=== PATIENT | female | born 1975 | race Caucasian/White ===

== ENCOUNTER 2021-11-02 | Inpatient (IN) | payer MEDICAID ==
[~2021-11-02] VITALS: Ht 154.9 cm; Wt 75.0 kg
[2021-11-02] MEDS ORDERED: METOPROLOL SUCCINATE 50MG ER TABLET PO STA (00:48)
[2021-11-02] MEDS ORDERED: IBUPROFEN 600MG TABLET PO ONE (01:00)
[2021-11-02] MEDS ORDERED: CLONIDINE 0.2MG TABLET PO ONE (01:00)
[2021-11-02] MEDS ORDERED: LABETALOL HCL VIAL 20 MG/4 ML VIAL IV ONE (02:30)
[2021-11-02] MEDS: LABETALOL 5MG/ML SYR 20 MG/4 ML SYRINGE IV NR ×2 (02:30→02:58)
[2021-11-02] MEDS ORDERED: ONDANSETRON HCL 4MG/2ML INJ IV PRN (03:30)
[2021-11-02] MEDS ORDERED: DIPHENHYDRAMINE 50MG/ML VIAL IV PRN (03:30)
[2021-11-02] MEDS ORDERED: ZOLPIDEM TARTRATE 5MG TABLET PO PRN (03:30)
[2021-11-02] MEDS ORDERED: HYDRALAZINE 20MG/ML VIAL IV PRN (03:30)
[2021-11-02] MEDS ORDERED: CLONIDINE 0.1MG TABLET PO PRN (03:30)
[2021-11-02] MEDS ORDERED: ACETAMINOPHEN 325MG TABLET PO PRN ×2 (03:30)
[2021-11-02] MEDS ORDERED: DEXTROSE 50% WATER 50ML SYRINGE IV PRN (03:30)
[2021-11-02 03:32] LABS: CHLORIDE 102 mEq/L (98-107); HEMATOCRIT 40.5 % (36.0-48.0); HEMOGLOBIN 13.4 g/dL (12.0-16.0); MEAN CORPUSCULAR HEMOGLOBIN 27.3 pg (28.0-32.0); MEAN CORPUSCULAR VOLUME 82.2 fL (81.0-99.0); PLATELET 208 x1000/uL (130-400); RED BLOOD CELL COUNT 4.92 mill/uL (4.2-5.4); RED CELL DISTRIBUTION WIDTH 13.8 % (11.6-14.6)
[2021-11-02 05:41] LABS: CHLORIDE 110 mEq/L (98-107)
[2021-11-02] MEDS: HYDRALAZINE HCL 100MG TABLET PO SCH ×3 (06:00→22:00)
[2021-11-02] MEDS ORDERED: SODIUM CHLORIDE 0.9% 1,000 ML IV ONE (06:30)
[2021-11-02] MEDS: SODIUM CHLORIDE 0.9% INJ 3ML FLUSH IVF SCH ×3 (06:47→20:32)
[2021-11-02] MEDS: INSULIN LISPRO 100 UNITS/ML SUBCUT SCH ×4 (08:20→20:48)
[2021-11-02] MEDS: BLOOD SUGAR DIAGNOSTIC STRIP TEST SCH ×4 (09:29→20:42)
[2021-11-02] MEDS: AMLODIPINE 5MG TABLET PO SCH ×2 (09:42→20:31)
[2021-11-02] MEDS: LABETALOL HCL 300MG TABLET PO SCH ×2 (09:43→20:32)
[2021-11-02 23:05] VITALS: BP 114/60
== END 2021-11-02 23:05 | disposition home or self-care (01) | DRG 199 ==
LOC: ER → MICUSO 02:30
PROVIDERS: ADMIT Internal Medicine; ATTEND Internal Medicine
DX: I16.0 Hypertensive urgency (principal); E11.9 Type 2 diabetes mellitus without complications; I10 Essential (primary) hypertension; Z20.822 Contact with and (suspected) exposure to COVID-19
CPT/HCPCS: 36415; 80053; 82962; 83036; 84484; 85027; 87426; 99285; J1815; J3490

== ENCOUNTER 2022-07-12 20:21 | Emergency (ER) | payer MEDICAID ==
[~2022-07-12] VITALS: Ht 162.6 cm; Wt 73.0 kg
[2022-07-12] MEDS ORDERED: CYCLOBENZAPRINE 10MG TABLET PO ONE (22:45)
[2022-07-12] MEDS ORDERED: KETOROLAC 30MG/ML VIAL IM ONE (22:45)
[2022-07-12] MEDS ORDERED: CYCL10TA21 MT (22:55)
[2022-07-12] MEDS ORDERED: NAPR-1176 MT (22:55)
[2022-07-12 23:07] VITALS: BP 123/89
== END 2022-07-12 23:08 | disposition home or self-care (01) ==
LOC: ER 20:21
DX: S30.0XXA Contusion of lower back and pelvis, initial encounter (principal); S10.83XA Contusion of other specified part of neck, initial encounter; W18.39XA Other fall on same level, initial encounter; Y93.89 Activity, other specified; Y92.89 Other specified places as the place of occurrence of the external cause; Y99.8 Other external cause status; E11.9 Type 2 diabetes mellitus without complications; I10 Essential (primary) hypertension
CPT/HCPCS: 81025; 96372; 99283; J1885

== ENCOUNTER 2022-08-24 22:26 | Inpatient (IN) | payer MEDICAID ==
[~2022-08-24] VITALS: Ht 160 cm; Wt 69.6 kg
[~2022-08-24 22:26] MED LIST: CYCL10TA21 MT; NAPR-1176 MT
[2022-08-25 03:57] LABS: CHLORIDE 103 mEq/L (98-107)
[2022-08-25 04:04] LABS: BASOPHILS % 0.1 % (0.0-2.0); EOSINOPHILS % 1.1 % (0.0-5.0); HEMATOCRIT. 42.5 % (36.0-48.0); HEMOGLOBIN. 13.8 g/dL (12.0-16.0); LYMPHOCYTES % 30.3 % (20.0-50.0); MEAN CORPUSCULAR HEMOGLOBIN 27.1 pg (28.0-32.0); MEAN CORPUSCULAR VOLUME 83.4 fL (81.0-99.0); MEAN PLATELET VOLUME 8.4 fl (7.4-10.4); MONOCYTES % 6.6 % (2.0-8.0); NEUTROPHILS % 61.9 % (40.0-76.0); PLATELET 277 x1000/uL (130-400); RED BLOOD CELL COUNT 5.09 mill/uL (4.2-5.4); RED CELL DISTRIBUTION WIDTH 13.6 % (11.6-14.6)
[2022-08-25 04:15] LABS: *AMPHETAMINES SCREEN URINE NEGATIVE (NEGATIVE); *BARBITURATES SCREEN URINE NEGATIVE (NEGATIVE); *BENZODIAZEPINES SCREEN URINE NEGATIVE (NEGATIVE); *COCAINE SCREEN URINE NEGATIVE (NEGATIVE); CANNABINOID URINE SCREEN NEGATIVE (NEGATIVE); METHADONE URINE SCREEN NEGATIVE (NEGATIVE); OPIATES URINE SCREEN NEGATIVE (NEGATIVE); PHENCYCLIDINE URINE SCREEN NEGATIVE (NEGATIVE)
[2022-08-25 16:00] VITALS: BP 166/89
[2022-08-25 16:29] VITALS: BP 166/87
[2022-08-25] MEDS: AMLODIPINE 5MG TABLET PO SCH (16:51)
[2022-08-25 20:00] VITALS: BP 149/89
[2022-08-25] MEDS ORDERED: IBUPROFEN 600MG TABLET PO NR (21:15)
[2022-08-26] VITALS: BP 166/81
[2022-08-26 04:00] VITALS: BP 141/78
[2022-08-26 08:00] VITALS: BP 139/80
[2022-08-26] MEDS ORDERED: CLONIDINE 0.1MG TABLET PO PRN (08:15)
[2022-08-26] MEDS ORDERED: ACETAMINOPHEN 325MG TABLET PO PRN (08:15)
[2022-08-26] MEDS ORDERED: HYDROCODONE/ACETAMINOPHEN 5/325MG TABLET PO PRN (08:15)
[2022-08-26] MEDS ORDERED: ONDANSETRON HCL 4MG/2ML INJ IV PRN (08:15)
[2022-08-26] MEDS ORDERED: MAGNESIUM/ALUMINUM HYDROXIDE/SIMETHICONE 30ML UDC PO PRN (08:15)
[2022-08-26] MEDS ORDERED: NALOXONE HCL 0.4MG/ML VIAL IV PRN (08:30)
[2022-08-26] MEDS: ENOXAPARIN 40MG/0.4ML SYR SUBCUT SCH (10:34)
[2022-08-26] MEDS: AMLODIPINE 5MG TABLET PO SCH (10:34)
[2022-08-26] MEDS ORDERED: DEXTROSE 50% WATER 50ML SYRINGE IV PRN (11:15)
[2022-08-26 12:00] VITALS: BP 135/71
[2022-08-26] MEDS: BLOOD SUGAR DIAGNOSTIC STRIP TEST SCH ×3 (13:10→21:17)
[2022-08-26] MEDS: INSULIN LISPRO 100 UNITS/ML SUBCUT SCH ×3 (13:36→21:21)
[2022-08-26 16:00] VITALS: BP 124/70
[2022-08-26 20:00] VITALS: BP 125/67
[2022-08-27] VITALS: BP 119/63
[2022-08-27 04:00] VITALS: BP 111/63
[2022-08-27] MEDS: BLOOD SUGAR DIAGNOSTIC STRIP TEST SCH ×4 (06:20→21:14)
[2022-08-27] MEDS: OMEPRAZOLE 20MG CAPSULE EXTENDED RELEASE PO SCH (06:36)
[2022-08-27 07:15] LABS: BASOPHILS % 0.2 % (0.0-2.0); EOSINOPHILS % 1.8 % (0.0-5.0); HEMATOCRIT. 38.2 % (36.0-48.0); HEMOGLOBIN. 12.8 g/dL (12.0-16.0); LYMPHOCYTES % 33.1 % (20.0-50.0); MEAN CORPUSCULAR HEMOGLOBIN 27.9 pg (28.0-32.0); MEAN CORPUSCULAR VOLUME 83.4 fL (81.0-99.0); MEAN PLATELET VOLUME 8.1 fl (7.4-10.4); MONOCYTES % 6.8 % (2.0-8.0); NEUTROPHILS % 58.1 % (40.0-76.0); PLATELET 266 x1000/uL (130-400); RED BLOOD CELL COUNT 4.59 mill/uL (4.2-5.4); RED CELL DISTRIBUTION WIDTH 13.2 % (11.6-14.6)
[2022-08-27 08:00] VITALS: BP 146/78
[2022-08-27] MEDS: ENOXAPARIN 40MG/0.4ML SYR SUBCUT SCH (10:04)
[2022-08-27] MEDS: AMLODIPINE 5MG TABLET PO SCH (10:04)
[2022-08-27] MEDS: INSULIN LISPRO 100 UNITS/ML SUBCUT SCH ×4 (10:30→21:14)
[2022-08-27 10:37] LABS: CHLORIDE 104 mEq/L (98-107)
[2022-08-27 11:07] LABS: HDL CHOLESTEROL 40 mg/dL (40-59); LDL CHOLESTEROL 79 mg/dL (5-100); PHOSPHORUS 3.2 mg/dL (2.5-4.9); T4 FREE 0.89 ng/dL (0.76-1.46)
[2022-08-27 12:00] VITALS: BP 156/84
[2022-08-27] MEDS: INSULIN GLARGINE 100 UNITS/ML SUBCUT SCH (13:16)
[2022-08-27 15:54] VITALS: BP 144/76
[2022-08-27 20:00] VITALS: BP 154/71
[2022-08-28] VITALS: BP 119/72
[2022-08-28 04:00] VITALS: BP 126/68
[2022-08-28] MEDS: BLOOD SUGAR DIAGNOSTIC STRIP TEST SCH ×2 (06:33→12:47)
[2022-08-28] MEDS: OMEPRAZOLE 20MG CAPSULE EXTENDED RELEASE PO SCH (06:39)
[2022-08-28 07:03] LABS: BASOPHILS % 0.3 % (0.0-2.0); EOSINOPHILS % 1.5 % (0.0-5.0); HEMATOCRIT. 37.4 % (36.0-48.0); HEMOGLOBIN. 12.6 g/dL (12.0-16.0); MEAN CORPUSCULAR HEMOGLOBIN 27.7 pg (28.0-32.0); MEAN CORPUSCULAR VOLUME 82.4 fL (81.0-99.0); MEAN PLATELET VOLUME 8.2 fl (7.4-10.4); MONOCYTES % 7.1 % (2.0-8.0); NEUTROPHILS % 62.1 % (40.0-76.0); PLATELET 280 x1000/uL (130-400); RED BLOOD CELL COUNT 4.54 mill/uL (4.2-5.4); RED CELL DISTRIBUTION WIDTH 13.4 % (11.6-14.6)
[2022-08-28 07:25] LABS: CHLORIDE 104 mEq/L (98-107)
[2022-08-28 07:49] LABS: PHOSPHORUS 3.3 mg/dL (2.5-4.9)
[2022-08-28 08:00] VITALS: BP 143/77
[2022-08-28] MEDS: AMLODIPINE 5MG TABLET PO SCH (09:25)
[2022-08-28] MEDS: ENOXAPARIN 40MG/0.4ML SYR SUBCUT SCH (09:26)
[2022-08-28] MEDS: INSULIN LISPRO 100 UNITS/ML SUBCUT SCH ×2 (09:26→12:49)
[2022-08-28] MEDS: INSULIN GLARGINE 100 UNITS/ML SUBCUT SCH (10:17)
[2022-08-28 12:00] VITALS: BP 135/78
[2022-08-28 14:35] VITALS: BP 135/78
== END 2022-08-28 15:20 | disposition home or self-care (01) | DRG 203 ==
LOC: ER 22:32 → EDBEDREQ 08-25 06:01 → ENRESERV 08-25 14:18 → 6WST 08-25 16:10
PROVIDERS: ADMIT Internal Medicine; ATTEND Internal Medicine
DX: M94.0 Chondrocostal junction syndrome [Tietze] (principal); E11.9 Type 2 diabetes mellitus without complications; R00.2 Palpitations; I10 Essential (primary) hypertension; Z83.3 Family history of diabetes mellitus
CPT/HCPCS: 36415; 71045; 80048; 80053; 80061; 80076; 80305; 82962; 83036; 83605; 83735; 83880; 84100; 84439; 84443; 84484; 85025; 85379; 93005; 93306; 93970; 99285; J1650; J1815

== ENCOUNTER 2024-05-10 07:58 | Emergency (ER) | payer MEDICAID ==
[~2024-05-10] VITALS: Ht 162.6 cm; Wt 82.0 kg
[~2024-05-10 07:58] MED LIST changes: +LIDO700A15 TP
[2024-05-10 08:02] VITALS: O2SAT 96
[2024-05-10] MEDS: IBUPROFEN 400MG TABLET PO ONE (08:49)
[2024-05-10] MEDS ORDERED: AMOX1TAB16 MT (09:57)
[2024-05-10] MEDS ORDERED: IBUP-2028 MT (09:57)
[2024-05-10 09:58] VITALS: BP 136/74; PULSE 86; RESP 18; TEMP 98.3
== END 2024-05-10 10:03 | disposition home or self-care (01) ==
LOC: ER 07:58
DX: J32.9 Chronic sinusitis, unspecified (principal); E11.9 Type 2 diabetes mellitus without complications; Z20.822 Contact with and (suspected) exposure to COVID-19
CPT/HCPCS: 87426; 99283